=== PATIENT | female | born 1940 ===

== ENCOUNTER 2021-08-01 01:40 | Emergency (ER) | payer OTHER ==
--- NOTE | 2021-08-01 03:13 | ER ---
Nurse's Notes [facility] Name: Kim Russo Age: 81 yrs Sex: Female : 1940 Arrival Date: 08/01/2021 Time: 01:46 Bed Waiting Private MD: Diagnosis: Presentation: 08/01 02:56 Chief complaint: Patient states: she started having right hip pain late yesterday bb afternoon the pain was worse but she took some Aleve and it is feeling better pain is now 5/10. Coronavirus screen: At this time, the client does not indicate any symptoms associated with coronavirus-19. Ebola Screen: No symptoms or risks identified at this time. Initial Sepsis Screen: Does the patient meet any 2 criteria? No. Patient's initial sepsis screen is negative. Does the patient have a suspected source of infection? No. Patient's initial sepsis screen is negative. Risk Assessment: Do you want to hurt yourself or someone else? Patient reports no desire to harm self or others. Onset of symptoms was July 31, 2021. 02:56 Method Of Arrival: Wheelchair bb 02:56 Acuity: RAMONITA 5 bb Triage Assessment: 02:59 General: Appears in no apparent distress. Behavior is cooperative. Pain: Complains of bb pain in back Pain currently is 5 out of 10 on a pain scale. Neuro: Level of Consciousness is awake, alert, obeys commands, Oriented to person, place, time, situation. Cardiovascular: Capillary refill < 3 seconds Patient's skin is warm and dry. Respiratory: Respiratory effort is even, unlabored, Respiratory pattern is regular. GI: No signs and/or symptoms were reported involving the gastrointestinal system. Derm: Skin is pink, warm \T\ dry. Musculoskeletal: Circulation, motion, and sensation intact. 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 - Social history:: Smoking status: unknown. Assessment: 03:05 Reassessment: pt states she now feels better and does not want to be seen in the ED so bb pt and spouse left the ED. Vital Signs: 02:56 BP 145 / 54; Pulse 67; Resp 16 S; Temp 97.7(O); Pulse Ox 99% on R/A; Weight 90.72 kg bb (R); Height 5 ft. 3 in. (160.02 cm) (R); Pain 5/10; 02:56 Body Mass Index 35.43 (90.72 kg, 160.02 cm) jamaal ED Course: 01:46 Patient arrived in ED. angelica 02:59 Triage completed. jamaal 02:59 Arm band placed on Patient placed in waiting room, Patient notified of wait time. jamaal Administered Medications: No medications were administered Outcome: 03:12 Patient left the ED. jamaal Signatures: Pati Price RN RN Alicia Pollack
== END 2021-08-01 03:12 | disposition left against medical advice (07) ==
LOC: ER 01:40
DX: Z02.9 Encounter for administrative examinations, unspecified (principal)
CPT/HCPCS: 99281